=== PATIENT | female | born 1955 | race Caucasian/White ===

== ENCOUNTER → 2019-03-26 | Outpatient (REF) | payer OTHER | LOC: EEVIPCON 09:31 → M LAB REF 09:31 | PROVIDERS: ATTEND Physician Assistant Medical | DX: L73.9 Follicular disorder, unspecified (principal) ==

== ENCOUNTER 2023-03-22 14:30 | Inpatient (IN) | payer MEDICAID, MEDICARE, OTHER, SELFPAY ==
[~2023-03-22] VITALS: Ht 157.5 cm; Wt 152.8 kg
[2023-03-22] MEDS ORDERED: BACL1TAB9 PO (14:55)
[2023-03-22] MEDS ORDERED: ZOLP10TA2 PO (14:55)
[2023-03-22] MEDS ORDERED: HYDR-3719 PO (14:55)
[2023-03-22] MEDS ORDERED: HYDR50TA70 PO (14:55)
[2023-03-22] MEDS ORDERED: MUPI2OI (14:55)
[2023-03-22] MEDS ORDERED: LORA1TAB23 PO (14:55)
[2023-03-22] MEDS ORDERED: METOPROLOL TART 50 MG TAB PO ONE (15:20)
[2023-03-22] MEDS ORDERED: FUROSEMIDE 40MG/4ML VIAL IV ONE (15:20)
[2023-03-22 15:24] LABS: BASO % 0.5 % (0.0-1.0); EOS # 0.1 10^3/uL (0.0-0.5); HEMATOCRIT 38.1 % (36.0-47.0); HEMOGLOBIN 10.2 g/dl (12.0-15.5); LYMPH # 1.2 10^3/uL (1.5-5.0); LYMPH % 14.1 % (24.0-44.0); MEAN CORPUSCULAR HEMOGLOBIN 25.6 pg (27.0-33.0); MEAN CORPUSCULAR HGB CONC 26.8 g/dl (32.0-36.5); MEAN CORPUSCULAR VOLUME 95.5 fl (80.0-96.0); MONO # 0.9 10^3/uL (0.0-0.8); MONO % 10.1 % (2.0-8.0); NEUTROPHILS # 6.4 10^3/uL (1.5-8.5); NEUTROPHILS % 73.7 % (36.0-66.0); PLATELET COUNT, AUTOMATED 132 10^3/uL (150-450); RED BLOOD COUNT 3.99 10^6/uL (4.00-5.40); WHITE BLOOD COUNT 8.6 10^3/uL (4.0-10.0)
[2023-03-22] MEDS: METOPROLOL 5 MG/5 ML VIAL IV SCH ×3 (15:29→15:41)
[2023-03-22 15:49] LABS: THYROID STIMULATING HORMONE 1.345 uIU/ML (0.55-4.78)
[2023-03-22 15:51] LABS: ALBUMIN 2.9 G/DL (3.2-5.2); ALKALINE PHOSPHATASE 106 U/L (46-116); ALT/SGPT 18 U/L (7.0-40); AST/SGOT 24 U/L (<34); BILIRUBIN,DIRECT 0.1 MG/DL (<0.4); BILIRUBIN,TOTAL 0.3 MG/DL (0.3-1.2); BLOOD UREA NITROGEN 14 MG/DL (9-23); CALCIUM LEVEL 7.8 MG/DL (8.3-10.6); CARBON DIOXIDE LEVEL > 40.0 MMOL/L (20-31); CHLORIDE LEVEL 99 MMOL/L (98-107); CREATININE FOR GFR 0.68 MG/DL (0.55-1.30); GLOMERULAR FILTRATION RATE > 60.0 (>45); GLUCOSE, FASTING 123 MG/DL (74-106); POTASSIUM SERUM 5.1 MMOL/L (3.5-5.1); SODIUM LEVEL 143 MMOL/L (136-145); TOTAL PROTEIN 5.8 G/DL (5.7-8.2)
[2023-03-22] MEDS ORDERED: APIXABAN 5 MG TAB (ELIQUIS) PO ONE (16:15)
[2023-03-22] MEDS ORDERED: MORPHINE 2 MG/ML 1ML VIAL As Ordered ONE (16:53)
[2023-03-22] MEDS ORDERED: MORPHINE 2 MG/ML 1ML VIAL IV ONE (16:55)
[2023-03-22] MEDS ORDERED: DIGOXIN INJ 0.5 MG/2 ML AMP IV ONE ×2 (17:05→23:30)
[2023-03-22] MEDS ORDERED: IPRATROPIUM 0.5MG/ALBUTEROL 2.5MG INH SOL UD 3ML (DUONEB) NEB PRN (18:05)
[2023-03-22] MEDS ORDERED: traZODone 25MG PER 1/2 TABLET PO PRN (18:10)
[2023-03-22] MEDS ORDERED: MED REC IN PROGRESS XX SCH (18:50)
[2023-03-22 18:55] LABS: ABG BASE EXCESS 8.8 (-2.0-2.0); ABG HCO3 36.2 MMOL/L (22.0-26.0); ABG O2 SATURATION 95.1 % (95.0-99.0); ABG PARTIAL PRESSURE O2 75.8 mmHg (75.0-100.0); ABG STANDARD HCO3 32.5 MMOL/L. (22.0-26.0); ABG TOTAL CO2 38.2 MMOL/L (23.0-31.0); ABG pH (ARTERIAL) 7.361 UNITS (7.350-7.450)
[2023-03-22] MEDS ORDERED: HOME MED LIST COMPLETE! XX SCH (18:55)
[2023-03-22 18:57] LABS: ABG PARTIAL PRESSURE CO2 65.4 mmHg (35.0-45.0)
[2023-03-22] MEDS: LEVALBUTEROL HFA 45MCG/ACT 15GM INHALER INH SCH (19:20)
[2023-03-22 20:05] VITALS: BP 153/74; TEMP 97; O2SAT 96
[2023-03-22] MEDS: LORazepam 0.5 MG TAB PO SCH (21:21)
[2023-03-22] MEDS: ANEXSIA, NORCO 7.5MG/325MG TABLET(HYDROCODONE/APAP) PO PRN (21:22)
[2023-03-22] MEDS ORDERED: NICOTINE 21MG/24HR 1 EA TRANSDERMAL TD PRN (23:15)
[2023-03-22 23:44] VITALS: BP 143/61; TEMP 96.6; O2SAT 93
[2023-03-22] MEDS: METOPROLOL TART 12.5 MG PER 1/2 TAB PO SCH (23:46)
[2023-03-23] VITALS (9 sets, daily range): BP systolic 122–150; BP diastolic 60–87; TEMP 96.9–97.4; O2SAT 87–94
[2023-03-23] MEDS ORDERED: FUROSEMIDE 40MG/4ML VIAL IV SCH
[2023-03-23] MEDS: LEVALBUTEROL HFA 45MCG/ACT 15GM INHALER INH SCH ×4 (01:04→19:18)
[2023-03-23] MEDS: hydrOXYzine 50 MG TAB PO PRN (03:37)
[2023-03-23] MEDS: ANEXSIA, NORCO 7.5MG/325MG TABLET(HYDROCODONE/APAP) PO PRN ×2 (03:38→10:42)
[2023-03-23 05:58] LABS: BASO % 0.2 % (0.0-1.0); EOS % 0.5 % (0.0-3.0); HEMATOCRIT 37.5 % (36.0-47.0); HEMOGLOBIN 10.3 g/dl (12.0-15.5); LYMPH # 1.3 10^3/uL (1.5-5.0); LYMPH % 15.1 % (24.0-44.0); MEAN CORPUSCULAR HEMOGLOBIN 25.2 pg (27.0-33.0); MEAN CORPUSCULAR HGB CONC 27.5 g/dl (32.0-36.5); MEAN CORPUSCULAR VOLUME 91.9 fl (80.0-96.0); MONO # 0.9 10^3/uL (0.0-0.8); MONO % 10.6 % (2.0-8.0); NEUTROPHILS # 6.5 10^3/uL (1.5-8.5); NEUTROPHILS % 73.1 % (36.0-66.0); PLATELET COUNT, AUTOMATED 130 10^3/uL (150-450); RED BLOOD COUNT 4.08 10^6/uL (4.00-5.40); WHITE BLOOD COUNT 8.8 10^3/uL (4.0-10.0)
[2023-03-23 06:29] LABS: BLOOD UREA NITROGEN 16 MG/DL (9-23); CALCIUM LEVEL 7.9 MG/DL (8.3-10.6); CARBON DIOXIDE LEVEL > 40.0 MMOL/L (20-31); CHLORIDE LEVEL 93 MMOL/L (98-107); CREATININE FOR GFR 0.74 MG/DL (0.55-1.30); GLOMERULAR FILTRATION RATE > 60.0 (>45); GLUCOSE, FASTING 118 MG/DL (74-106); MAGNESIUM LEVEL 1.7 MG/DL (1.8-2.4); POTASSIUM SERUM 3.9 MMOL/L (3.5-5.1); SODIUM LEVEL 141 MMOL/L (136-145)
[2023-03-23] MEDS: METOPROLOL TART 12.5 MG PER 1/2 TAB PO SCH (06:50)
[2023-03-23] MEDS ORDERED: MAG SULF 1GM/100ML (MAG RUN) 1 GM in IV 1 EA IV ONE (07:20)
[2023-03-23 08:35] LABS: ABG BASE EXCESS 12.7 (-2.0-2.0); ABG HCO3 39.6 MMOL/L (22.0-26.0); ABG O2 SATURATION 90.5 % (95.0-99.0); ABG PARTIAL PRESSURE O2 60.9 mmHg (75.0-100.0); ABG STANDARD HCO3 36.3 MMOL/L. (22.0-26.0); ABG TOTAL CO2 41.5 MMOL/L (23.0-31.0); ABG pH (ARTERIAL) 7.409 UNITS (7.350-7.450)
[2023-03-23] MEDS: DIGOXIN 0.25 MG TAB PO SCH ×2 (09:00→10:31)
[2023-03-23] MEDS: FUROSEMIDE 40MG/4ML VIAL IV SCH ×2 (09:41→16:51)
[2023-03-23] MEDS: LORazepam 0.5 MG TAB PO SCH ×3 (09:43→20:05)
[2023-03-23] MEDS: MAGNESIUM OXIDE 400MG TAB (MAG-OX) PO SCH ×2 (09:43→20:05)
[2023-03-23] MEDS: APIXABAN 5 MG TAB (ELIQUIS) PO SCH ×2 (09:45→20:05)
[2023-03-23] MEDS ORDERED: ELIQ5TAB PO (10:37)
[2023-03-23] MEDS ORDERED: - PO SCH (12:00)
[2023-03-23] MEDS ORDERED: acetaZOLAMIDE 250MG TAB PO SCH (12:00)
[2023-03-23] MEDS: NORCO, ANEXSIA 5/325MG TABLET (HYDROcodone/ACETAMINOPHEN) PO PRN (16:53)
[2023-03-23] MEDS: POTASSIUM CHLORIDE 10MEQ SR TABLET PO SCH (20:05)
[2023-03-23] MEDS: BACLOFEN 10 MG TAB PO SCH (20:05)
[2023-03-23] MEDS: METOPROLOL TART 25 MG TABLET PO SCH (20:06)
[2023-03-23 20:47] LABS: BLOOD UREA NITROGEN 16 MG/DL (9-23); CALCIUM LEVEL 8.5 MG/DL (8.3-10.6); CARBON DIOXIDE LEVEL > 40.0 MMOL/L (20-31); CHLORIDE LEVEL 92 MMOL/L (98-107); CREATININE FOR GFR 0.85 MG/DL (0.55-1.30); GLOMERULAR FILTRATION RATE > 60.0 (>45); GLUCOSE, FASTING 115 MG/DL (74-106); POTASSIUM SERUM 3.9 MMOL/L (3.5-5.1); SODIUM LEVEL 139 MMOL/L (136-145)
[2023-03-23] MEDS ORDERED: zolPIDEM TARTRATE 5 MG TAB PO SCH (21:00)
[2023-03-24] MEDS ORDERED: OLANZapine INTRAMUSCULAR 10MG VIAL IM ONE (00:20)
[2023-03-24 01:00] VITALS: BP 127/60; TEMP 97.5; O2SAT 94
[2023-03-24] MEDS: LEVALBUTEROL HFA 45MCG/ACT 15GM INHALER INH SCH ×2 (01:04→07:48)
[2023-03-24 01:07] LABS: ABG BASE EXCESS 11.8 (-2.0-2.0); ABG HCO3 38.3 MMOL/L (22.0-26.0); ABG O2 SATURATION 96.7 % (95.0-99.0); ABG PARTIAL PRESSURE CO2 59.8 mmHg (35.0-45.0); ABG PARTIAL PRESSURE O2 92.6 mmHg (75.0-100.0); ABG STANDARD HCO3 35.5 MMOL/L. (22.0-26.0); ABG TOTAL CO2 40.1 MMOL/L (23.0-31.0); ABG pH (ARTERIAL) 7.424 UNITS (7.350-7.450)
[2023-03-24] MEDS: NORCO, ANEXSIA 5/325MG TABLET (HYDROcodone/ACETAMINOPHEN) PO PRN ×2 (02:59→09:04)
[2023-03-24] MEDS: hydrOXYzine 50 MG TAB PO PRN (02:59)
[2023-03-24 03:02] VITALS: BP 137/62; TEMP 97; O2SAT 94
[2023-03-24 07:30] VITALS: BP 139/70; TEMP 97.5; O2SAT 94
[2023-03-24] MEDS: FUROSEMIDE 40MG/4ML VIAL IV SCH (09:00)
[2023-03-24] MEDS: LORazepam 0.5 MG TAB PO SCH (09:02)
[2023-03-24 09:03] VITALS: BP 139/70
[2023-03-24] MEDS: DIGOXIN 0.25 MG TAB PO SCH (09:03)
[2023-03-24] MEDS: POTASSIUM CHLORIDE 10MEQ SR TABLET PO SCH (09:03)
[2023-03-24] MEDS: METOPROLOL TART 25 MG TABLET PO SCH (09:03)
[2023-03-24] MEDS: APIXABAN 5 MG TAB (ELIQUIS) PO SCH (09:03)
[2023-03-24] MEDS: MAGNESIUM OXIDE 400MG TAB (MAG-OX) PO SCH (09:03)
[2023-03-24] MEDS: BACLOFEN 10 MG TAB PO SCH (09:04)
[2023-03-24 09:25] LABS: VENOUS BASE EXCESS 11.8 (-2.0-2.0); VENOUS HCO3 39.2 MMOL/L (23.0-27.0); VENOUS O2 SATURATION 90.5 % (60.0-80.0); VENOUS PARTIAL PRESSURE CO2 66.2 mmHg (38.0-50.0); VENOUS PARTIAL PRESSURE O2 61.2 mmHg (30.0-50.0); VENOUS STANDARD HCO3 35.4 MMOL/L; VENOUS TOTAL CO2 41.2 MMOL/L (24.0-28.0)
[2023-03-24 09:33] LABS: BASO % 0.4 % (0.0-1.0); EOS # 0.1 10^3/uL (0.0-0.5); EOS % 1.1 % (0.0-3.0); HEMATOCRIT 36.4 % (36.0-47.0); HEMOGLOBIN 10.3 g/dl (12.0-15.5); LYMPH # 1.1 10^3/uL (1.5-5.0); LYMPH % 14.8 % (24.0-44.0); MEAN CORPUSCULAR HEMOGLOBIN 25.3 pg (27.0-33.0); MEAN CORPUSCULAR HGB CONC 28.3 g/dl (32.0-36.5); MEAN CORPUSCULAR VOLUME 89.4 fl (80.0-96.0); MONO # 0.6 10^3/uL (0.0-0.8); MONO % 8.7 % (2.0-8.0); NEUTROPHILS # 5.5 10^3/uL (1.5-8.5); NEUTROPHILS % 74.7 % (36.0-66.0); PLATELET COUNT, AUTOMATED 127 10^3/uL (150-450); RED BLOOD COUNT 4.07 10^6/uL (4.00-5.40); WHITE BLOOD COUNT 7.4 10^3/uL (4.0-10.0)
[2023-03-24 10:01] LABS: BLOOD UREA NITROGEN 16 MG/DL (9-23); CALCIUM LEVEL 8.5 MG/DL (8.3-10.6); CARBON DIOXIDE LEVEL 40 MMOL/L (20-31); CHLORIDE LEVEL 95 MMOL/L (98-107); CREATININE FOR GFR 0.74 MG/DL (0.55-1.30); GLOMERULAR FILTRATION RATE > 60.0 (>45); GLUCOSE, FASTING 114 MG/DL (74-106); MAGNESIUM LEVEL 2.1 MG/DL (1.8-2.4); POTASSIUM SERUM 3.4 MMOL/L (3.5-5.1); SODIUM LEVEL 139 MMOL/L (136-145)
[2023-03-24] MEDS ORDERED: HYDR-3719 PO (10:33)
[2023-03-24] MEDS ORDERED: DIGO0.123 PO (10:33)
[2023-03-24] MEDS ORDERED: INCR1INH INH (10:33)
[2023-03-24] MEDS ORDERED: BACL1TAB9 PO (10:33)
[2023-03-24] MEDS ORDERED: LEVAINH INH (10:33)
[2023-03-24] MEDS ORDERED: POTA-136 PO (10:33)
[2023-03-24] MEDS ORDERED: LORA1TAB23 PO (10:33)
[2023-03-24] MEDS ORDERED: TORS20TA2 PO (10:33)
[2023-03-24] MEDS ORDERED: METO1TAB87 PO (10:33)
== END 2023-03-24 11:45 | disposition home or self-care (01) | DRG 308 ==
LOC: M ED 14:30 → EDBD 14:30 → M ED INP 17:02 → M PCU 20:02
PROVIDERS: ADMIT Internal Medicine Nephrology; ATTEND Internal Medicine Nephrology
DX: I48.92 Unspecified atrial flutter (principal); I50.31 Acute diastolic (congestive) heart failure; J96.11 Chronic respiratory failure with hypoxia; Z68.44 Body mass index [BMI] 60.0-69.9, adult; J96.12 Chronic respiratory failure with hypercapnia; E66.2 Morbid (severe) obesity with alveolar hypoventilation; J44.9 Chronic obstructive pulmonary disease, unspecified; I27.20 Pulmonary hypertension, unspecified; F41.1 Generalized anxiety disorder; M54.59 Other low back pain; M17.2 Bilateral post-traumatic osteoarthritis of knee; D64.9 Anemia, unspecified; I48.91 Unspecified atrial fibrillation; Z88.0 Allergy status to penicillin; Z79.899 Other long term (current) drug therapy; F17.200 Nicotine dependence, unspecified, uncomplicated

== ENCOUNTER 2023-12-11 10:58 | Observation (INO) | payer MEDICARE ==
[~2023-12-11] VITALS: Ht 157.5 cm; Wt 141.3 kg
[~2023-12-11 10:58] MED LIST: BACL1TAB9 PO; DIGO0.123 PO; ELIQ5TAB PO; HYDR-3719 PO; HYDR50TA70 PO; INCR1INH INH; LEVAINH INH; LORA1TAB23 PO; METO1TAB87 PO; MUPI2OI; POTA-136 PO; TORS20TA2 PO; ZOLP10TA2 PO
[2023-12-11 12:05] LABS: VENOUS HCO3 35.5 MMOL/L (23.0-27.0); VENOUS O2 SATURATION 82.7 % (60.0-80.0); VENOUS PARTIAL PRESSURE CO2 63.5 mmHg (38.0-50.0); VENOUS PARTIAL PRESSURE O2 49.6 mmHg (30.0-50.0); VENOUS PH 7.365 UNITS (7.330-7.430); VENOUS STANDARD HCO3 31.4 MMOL/L; VENOUS TOTAL CO2 37.4 MMOL/L (24.0-28.0)
[2023-12-11 12:07] LABS: BASO % 0.4 % (0.0-1.0); EOS # 0.1 10^3/uL (0.0-0.5); EOS % 1.5 % (0.0-3.0); HEMATOCRIT 39.4 % (36.0-47.0); HEMOGLOBIN 11.9 g/dl (12.0-15.5); LYMPH # 1.1 10^3/uL (1.5-5.0); MEAN CORPUSCULAR HEMOGLOBIN 29.8 pg (27.0-33.0); MEAN CORPUSCULAR HGB CONC 30.2 g/dl (32.0-36.5); MEAN CORPUSCULAR VOLUME 98.7 fl (80.0-96.0); MONO # 0.6 10^3/uL (0.0-0.8); MONO % 7.3 % (2.0-8.0); NEUTROPHILS # 6.6 10^3/uL (1.5-8.5); NEUTROPHILS % 77.6 % (36.0-66.0); PLATELET COUNT, AUTOMATED 146 10^3/uL (150-450); RED BLOOD COUNT 3.99 10^6/uL (4.00-5.40); WHITE BLOOD COUNT 8.5 10^3/uL (4.0-10.0)
[2023-12-11 12:28] LABS: INR 1.29; PROTHROMBIN TIME 15.7 SECONDS (12.5-14.5)
[2023-12-11 12:40] LABS: THYROID STIMULATING HORMONE 0.895 uIU/ML (0.55-4.78)
[2023-12-11 12:48] LABS: ALBUMIN 3.2 G/DL (3.2-5.2); ALKALINE PHOSPHATASE 83 U/L (46-116); ALT/SGPT 29 U/L (7.0-40); AST/SGOT 46 U/L (<34); BILIRUBIN,DIRECT 0.1 MG/DL (<0.4); BILIRUBIN,TOTAL 0.3 MG/DL (0.3-1.2); BLOOD UREA NITROGEN 22 MG/DL (9-23); CALCIUM LEVEL 8.5 MG/DL (8.3-10.6); CARBON DIOXIDE LEVEL 36 MMOL/L (20-31); CHLORIDE LEVEL 105 MMOL/L (98-107); CREATININE FOR GFR 0.75 MG/DL (0.55-1.30); GLOMERULAR FILTRATION RATE > 60.0 (>45); GLUCOSE, FASTING 132 MG/DL (74-106); POTASSIUM SERUM 5.1 MMOL/L (3.5-5.1); SODIUM LEVEL 145 MMOL/L (136-145); TOTAL PROTEIN 6.3 G/DL (5.7-8.2)
[2023-12-11] MEDS ORDERED: ISOVUE-370 76% 100ML VIAL As Ordered ONE (14:02)
[2023-12-11] MEDS: FUROSEMIDE 100MG/10ML VIAL IV ONE (14:30)
[2023-12-11] MEDS: MIDAZOLAM INJ 2MG/2ML VIAL IV STA (14:30)
[2023-12-11] MEDS ORDERED: ACETAMINOPHEN TAB 650MG DOSE (2X325MG) PO PRN (15:30)
[2023-12-11] MEDS ORDERED: MOM 30ML SUSPENSION UDC PO PRN (15:30)
[2023-12-11] MEDS ORDERED: TORS20TA2 PO (16:11)
[2023-12-11] MEDS ORDERED: HYDR-4517 PO (16:11)
[2023-12-11] MEDS ORDERED: DIGO0.123 PO (16:11)
[2023-12-11] MEDS ORDERED: LORA1TAB23 PO (16:11)
[2023-12-11] MEDS ORDERED: BUPR15TASR PO (16:11)
[2023-12-11] MEDS ORDERED: POTA-150 PO (16:11)
[2023-12-11] MEDS ORDERED: LEVA45AE INH (16:11)
[2023-12-11] MEDS ORDERED: METO1TAB87 PO (16:11)
[2023-12-11] MEDS ORDERED: ELIQ5TAB PO (16:11)
[2023-12-11] MEDS ORDERED: HOME MED LIST COMPLETE! XX SCH (16:15)
[2023-12-11] MEDS ORDERED: ONDANSETRON 4MG 2ML VIAL IV PRN (17:20)
[2023-12-11 17:35] VITALS: BP 156/93; TEMP 97.3; O2SAT 94
[2023-12-11] MEDS: METOPROLOL TART 25 MG TABLET PO ONE (18:17)
[2023-12-11 19:53] VITALS: BP 139/95; TEMP 97.5; O2SAT 92
[2023-12-11] MEDS ORDERED: NORCO, ANEXSIA 5/325MG TABLET (HYDROcodone/ACETAMINOPHEN) PO PRN (19:55)
[2023-12-11] MEDS: LEVALBUTEROL HFA 45MCG/ACT 15GM INHALER INH SCH (20:00)
[2023-12-11] MEDS: DOCUSATE SODIUM 100MG CAPSULE PO SCH (21:00)
[2023-12-11] MEDS: BACLOFEN 10 MG TAB PO SCH (21:27)
[2023-12-11] MEDS: NORCO, ANEXSIA 5/325MG TABLET (HYDROcodone/ACETAMINOPHEN) PO PRN (21:31)
[2023-12-11] MEDS: LORazepam 1 MG TAB PO PRN (21:32)
[2023-12-11] MEDS: APIXABAN 5 MG TAB (ELIQUIS) PO SCH (21:47)
[2023-12-11] MEDS: FUROSEMIDE 40MG/4ML VIAL IV ONE (21:47)
[2023-12-11 22:00] VITALS: BP 139/95; TEMP 97.5; O2SAT 94
[2023-12-12 06:00] LABS: HEMATOCRIT 37.9 % (36.0-47.0); HEMOGLOBIN 11.7 g/dl (12.0-15.5); MEAN CORPUSCULAR HEMOGLOBIN 29.5 pg (27.0-33.0); MEAN CORPUSCULAR HGB CONC 30.9 g/dl (32.0-36.5); MEAN CORPUSCULAR VOLUME 95.7 fl (80.0-96.0); PLATELET COUNT, AUTOMATED 144 10^3/uL (150-450); RED BLOOD COUNT 3.96 10^6/uL (4.00-5.40); WHITE BLOOD COUNT 9.2 10^3/uL (4.0-10.0)
[2023-12-12 06:21] VITALS: BP 125/92; TEMP 97.7; O2SAT 95
[2023-12-12 06:27] LABS: BLOOD UREA NITROGEN 20 MG/DL (9-23); CALCIUM LEVEL 8.4 MG/DL (8.3-10.6); CARBON DIOXIDE LEVEL 39 MMOL/L (20-31); CHLORIDE LEVEL 100 MMOL/L (98-107); GLOMERULAR FILTRATION RATE > 60.0 (>45); GLUCOSE, FASTING 116 MG/DL (74-106); POTASSIUM SERUM 3.5 MMOL/L (3.5-5.1); SODIUM LEVEL 143 MMOL/L (136-145)
[2023-12-12] MEDS: POTASSIUM CHLORIDE 10MEQ SR TABLET PO SCH (08:29)
[2023-12-12] MEDS: FUROSEMIDE 40MG/4ML VIAL IV SCH (08:29)
[2023-12-12] MEDS: METOPROLOL TART 25 MG TABLET PO SCH (08:37)
[2023-12-12] MEDS: buPROPion **SR TABLET** (ZYBAN) 150MG PO SCH (08:37)
[2023-12-12] MEDS: DIGOXIN 0.125 MG TAB PO SCH (08:38)
[2023-12-12] MEDS: GABAPENTIN 100 MG CAP PO SCH (10:00)
[2023-12-12] MEDS: LIDOCAINE 5% (LIDODERM) PATCH TD SCH (10:00)
[2023-12-12] MEDS: DICLOFENAC EPOLAMINE 1.3% PATCH TOP SCH (10:00)
[2023-12-12] MEDS: KETOROLAC 30 MG/ML 1ML VIAL IV ONE (10:01)
[2023-12-12] MEDS: CYCLOBENZAPRINE 10MG TABLET PO ONE (10:01)
[2023-12-12 12:00] VITALS: BP 128/61; TEMP 97.3; O2SAT 94
[2023-12-12] MEDS: LORazepam 1 MG TAB PO PRN (17:57)
[2023-12-12 18:57] VITALS: BP 127/85; TEMP 97.3; O2SAT 96
[2023-12-12 20:52] VITALS: BP 143/72; TEMP 97.2; O2SAT 95
[2023-12-12] MEDS: RAMELTEON 8 MG TAB (ROZEREM) PO SCH (20:59)
[2023-12-13 04:00] VITALS: BP 144/70; TEMP 96.8; O2SAT 92
[2023-12-13 12:00] VITALS: BP 132/65; TEMP 96.8; O2SAT 95
[2023-12-13] MEDS ORDERED: NYSTATIN 100,000 UNITS/GM TOPICAL PWD 15GM TOP PRN (13:55)
[2023-12-13 21:41] VITALS: BP 129/69; TEMP 97.3; O2SAT 91
[2023-12-14 02:35] LABS: BLOOD UREA NITROGEN 17 MG/DL (9-23); CALCIUM LEVEL 7.7 MG/DL (8.3-10.6); CARBON DIOXIDE LEVEL 38 MMOL/L (20-31); CHLORIDE LEVEL 95 MMOL/L (98-107); CREATININE FOR GFR 0.93 MG/DL (0.55-1.30); GLOMERULAR FILTRATION RATE > 60.0 (>45); GLUCOSE, FASTING 101 MG/DL (74-106); MAGNESIUM LEVEL 1.8 MG/DL (1.8-2.4); POTASSIUM SERUM 3.2 MMOL/L (3.5-5.1); SODIUM LEVEL 137 MMOL/L (136-145)
[2023-12-14] MEDS: KCL 10MEQ/100ML SWI (KRUN) 10 MEQ in IV 1 EA IV ONE (04:42)
[2023-12-14] MEDS: POTASSIUM CHLORIDE 10MEQ SR TABLET PO SCH (04:43)
[2023-12-14] MEDS: ACETAMINOPHEN TAB 650MG DOSE (2X325MG) PO PRN (04:43)
[2023-12-14] MEDS: MAGNESIUM OXIDE 400MG TAB (MAG-OX) PO SCH (04:44)
[2023-12-14 05:08] VITALS: BP 118/57; TEMP 97; O2SAT 93
[2023-12-14] MEDS: KCL 10MEQ/100ML SWI (KRUN) 10 MEQ in IV 1 EA IV SCH (08:09)
[2023-12-14] MEDS: TORSEMIDE 20 MG TAB PO SCH (08:55)
[2023-12-14 11:45] VITALS: BP 153/74; TEMP 97.2; O2SAT 93
[2023-12-14 11:51] LABS: ALBUMIN 2.9 G/DL (3.2-5.2); BLOOD UREA NITROGEN 17 MG/DL (9-23); CALCIUM LEVEL 7.8 MG/DL (8.3-10.6); CARBON DIOXIDE LEVEL 36 MMOL/L (20-31); CHLORIDE LEVEL 98 MMOL/L (98-107); CREATININE FOR GFR 0.86 MG/DL (0.55-1.30); GLOMERULAR FILTRATION RATE > 60.0 (>45); GLUCOSE, FASTING 131 MG/DL (74-106); PHOSPHORUS LEVEL 3.7 MG/DL (2.4-5.1); POTASSIUM SERUM 3.5 MMOL/L (3.5-5.1); SODIUM LEVEL 140 MMOL/L (136-145)
[2023-12-14] MEDS ORDERED: RAME8TAB2 PO (14:00)
[2023-12-14 20:34] VITALS: BP 149/73; TEMP 97.2; O2SAT 95
[2023-12-15 04:48] VITALS: BP 130/66; TEMP 97.3; O2SAT 94
[2023-12-15 08:14] VITALS: BP 142/59
[2023-12-15] MEDS ORDERED: MAGN400T2 PO (11:39)
== END 2023-12-15 13:32 | disposition home health service (06) ==
LOC: M ED 10:58 → EDBD 10:58 → M ED INP 10:59 → M MSPAV 17:35
PROVIDERS: ADMIT Student in an Organized Health Care Education/Training Program; ATTEND Student in an Organized Health Care Education/Training Program
DX: I50.33 Acute on chronic diastolic (congestive) heart failure (principal); R53.81 Other malaise; E66.01 Morbid (severe) obesity due to excess calories; I89.0 Lymphedema, not elsewhere classified; I11.0 Hypertensive heart disease with heart failure; I48.91 Unspecified atrial fibrillation; Z79.01 Long term (current) use of anticoagulants; J96.11 Chronic respiratory failure with hypoxia; J44.9 Chronic obstructive pulmonary disease, unspecified; Z99.81 Dependence on supplemental oxygen; G47.33 Obstructive sleep apnea (adult) (pediatric); F41.9 Anxiety disorder, unspecified; Z88.0 Allergy status to penicillin; Z79.899 Other long term (current) drug therapy; Z79.51 Long term (current) use of inhaled steroids
CPT/HCPCS: 36415; 71045; 71275; 80048; 80069; 80076; 80162; 81001; 82803; 83735; 83880; 84443; 85025; 85027; 85610; 87040; 87486; 87581; 87633; 87798; 93005; 93041; 93306; 93970; 94640; 94760; 96361; 96374; 96375; 96376; 97116; 97161; 99285; G0378; J1885; J1940; J2250; Q9967

== ENCOUNTER 2023-12-19 08:30 | Emergency (ER) | payer MEDICARE ==
[~2023-12-19] VITALS: Ht 157.5 cm; Wt 143.6 kg
[~2023-12-19 08:30] MED LIST changes: +BUPR15TASR PO; +HYDR-4517 PO; +LEVA45AE INH; +MAGN400T2 PO; +POTA-150 PO; +RAME8TAB2 PO
[2023-12-19 09:19] LABS: BASO % 0.5 % (0.0-1.0); EOS # 0.2 10^3/uL (0.0-0.5); EOS % 2.3 % (0.0-3.0); HEMATOCRIT 40.3 % (36.0-47.0); HEMOGLOBIN 12.2 g/dl (12.0-15.5); LYMPH # 1.2 10^3/uL (1.5-5.0); MEAN CORPUSCULAR HEMOGLOBIN 30.2 pg (27.0-33.0); MEAN CORPUSCULAR HGB CONC 30.3 g/dl (32.0-36.5); MEAN CORPUSCULAR VOLUME 99.8 fl (80.0-96.0); MONO # 0.7 10^3/uL (0.0-0.8); MONO % 8.4 % (2.0-8.0); NEUTROPHILS # 6.5 10^3/uL (1.5-8.5); NEUTROPHILS % 74.6 % (36.0-66.0); PLATELET COUNT, AUTOMATED 159 10^3/uL (150-450); RED BLOOD COUNT 4.04 10^6/uL (4.00-5.40); WHITE BLOOD COUNT 8.7 10^3/uL (4.0-10.0)
[2023-12-19 09:33] LABS: CK-MB VALUE MASS < 1.0 NG/ML (<3.6); LIPASE 22 U/L (12-53)
[2023-12-19 09:36] LABS: ALBUMIN 3.2 G/DL (3.2-5.2); ALKALINE PHOSPHATASE 99 U/L (46-116); ALT/SGPT 40 U/L (7.0-40); AST/SGOT 66 U/L (<34); BILIRUBIN,DIRECT 0.2 MG/DL (<0.4); BILIRUBIN,TOTAL 0.4 MG/DL (0.3-1.2); BLOOD UREA NITROGEN 34 MG/DL (9-23); CALCIUM LEVEL 8.4 MG/DL (8.3-10.6); CARBON DIOXIDE LEVEL 34 MMOL/L (20-31); CHLORIDE LEVEL 102 MMOL/L (98-107); CREATININE FOR GFR 0.96 MG/DL (0.55-1.30); GLOMERULAR FILTRATION RATE > 60.0 (>45); GLUCOSE, FASTING 123 MG/DL (74-106); POTASSIUM SERUM 4.6 MMOL/L (3.5-5.1); SODIUM LEVEL 141 MMOL/L (136-145); TOTAL PROTEIN 6.4 G/DL (5.7-8.2)
[2023-12-19 09:37] LABS: CPK CREATINE PHOSPHOKINASE 54 U/L (34-145); MB/CK RELATIVE INDEX 1.85 (< OR =4)
[2023-12-19] MEDS: GABAPENTIN 100 MG CAP PO ONE (10:22)
[2023-12-19 10:45] LABS: CK-MB VALUE MASS < 1.0 NG/ML (<3.6); CPK CREATINE PHOSPHOKINASE 59 U/L (34-145); MB/CK RELATIVE INDEX 1.69 (< OR =4)
[2023-12-19] MEDS ORDERED: ROLLMIS8 XX (14:46)
[2023-12-19] MEDS ORDERED: NEUR100C PO (14:46)
[2023-12-19 15:09] VITALS: BP 139/87; TEMP 97.5; O2SAT 93
== END 2023-12-19 15:26 | disposition home or self-care (01) ==
LOC: EDBD 08:30 → M ED 08:30
DX: G90.09 Other idiopathic peripheral autonomic neuropathy (principal); E66.01 Morbid (severe) obesity due to excess calories; I87.2 Venous insufficiency (chronic) (peripheral); J44.9 Chronic obstructive pulmonary disease, unspecified; G47.33 Obstructive sleep apnea (adult) (pediatric); Z88.0 Allergy status to penicillin; Z86.79 Personal history of other diseases of the circulatory system; Z87.891 Personal history of nicotine dependence; Z98.84 Bariatric surgery status; Z79.01 Long term (current) use of anticoagulants; Z79.810 Long term (current) use of selective estrogen receptor modulators (SERMs); Z79.899 Other long term (current) drug therapy

== ENCOUNTER 2023-12-24 20:24 | Observation (INO) | payer MEDICARE ==
[~2023-12-24] VITALS: Ht 157.5 cm; Wt 145.6 kg
[~2023-12-24 20:24] MED LIST changes: +LEVO1TAB40 PO; +NEUR100C PO; +ROLLMIS8 XX
[2023-12-24 21:24] LABS: BASO % 0.3 % (0.0-1.0); EOS # 0.2 10^3/uL (0.0-0.5); EOS % 2.5 % (0.0-3.0); HEMATOCRIT 40.7 % (36.0-47.0); HEMOGLOBIN 12.2 g/dl (12.0-15.5); LYMPH # 1.1 10^3/uL (1.5-5.0); LYMPH % 15.8 % (24.0-44.0); MEAN CORPUSCULAR HEMOGLOBIN 30.3 pg (27.0-33.0); MONO # 0.4 10^3/uL (0.0-0.8); NEUTROPHILS # 5.1 10^3/uL (1.5-8.5); NEUTROPHILS % 75.3 % (36.0-66.0); PLATELET COUNT, AUTOMATED 158 10^3/uL (150-450); RED BLOOD COUNT 4.03 10^6/uL (4.00-5.40); WHITE BLOOD COUNT 6.7 10^3/uL (4.0-10.0)
[2023-12-24 21:25] LABS: ABG BASE EXCESS 4.8 (-2.0-2.0); ABG HCO3 31.1 MMOL/L (22.0-26.0); ABG PARTIAL PRESSURE CO2 53.4 mmHg (35.0-45.0); ABG PARTIAL PRESSURE O2 71.5 mmHg (75.0-100.0); ABG STANDARD HCO3 28.7 MMOL/L. (22.0-26.0); ABG TOTAL CO2 32.7 MMOL/L (23.0-31.0); ABG pH (ARTERIAL) 7.383 UNITS (7.350-7.450)
[2023-12-24 22:36] LABS: CK-MB VALUE MASS < 1.0 NG/ML (<3.6)
[2023-12-24 22:38] LABS: ALBUMIN 2.8 G/DL (3.2-5.2); ALKALINE PHOSPHATASE 99 U/L (46-116); ALT/SGPT 40 U/L (7.0-40); AST/SGOT 42 U/L (<34); BILIRUBIN,DIRECT < 0.1 MG/DL (<0.4); BILIRUBIN,TOTAL 0.2 MG/DL (0.3-1.2); BLOOD UREA NITROGEN 22 MG/DL (9-23); CALCIUM LEVEL 7.9 MG/DL (8.3-10.6); CARBON DIOXIDE LEVEL 36 MMOL/L (20-31); CHLORIDE LEVEL 106 MMOL/L (98-107); CREATININE FOR GFR 0.81 MG/DL (0.55-1.30); DIGOXIN LEVEL 0.8 NG/ML (0.8-2.0); GLOMERULAR FILTRATION RATE > 60.0 (>45); GLUCOSE, FASTING 143 MG/DL (74-106); POTASSIUM SERUM 4.7 MMOL/L (3.5-5.1); SODIUM LEVEL 145 MMOL/L (136-145); TOTAL PROTEIN 5.8 G/DL (5.7-8.2)
[2023-12-24 22:44] LABS: CPK CREATINE PHOSPHOKINASE 64 U/L (34-145); MB/CK RELATIVE INDEX 1.56 (< OR =4)
[2023-12-24 23:41] LABS: CK-MB VALUE MASS < 1.0 NG/ML (<3.6); CPK CREATINE PHOSPHOKINASE 77 U/L (34-145); MB/CK RELATIVE INDEX 1.29 (< OR =4)
[2023-12-24] MEDS: FUROSEMIDE 40MG/4ML VIAL IV ONE (23:50)
[2023-12-24] MEDS: KETOROLAC 30 MG/ML 1ML VIAL IV ONE (23:51)
[2023-12-25] MEDS ORDERED: LORazepam 2 MG/ML 1ML VIAL IV STA (00:25)
[2023-12-25] MEDS ORDERED: ALBU2.5V10 INH (01:28)
[2023-12-25] MEDS ORDERED: GABA-1171 PO (01:28)
[2023-12-25] MEDS ORDERED: ROZE8TAB16 PO (01:31)
[2023-12-25] MEDS ORDERED: MAGN400T2 PO (01:31)
[2023-12-25] MEDS ORDERED: MED REC IN PROGRESS XX SCH (02:00)
[2023-12-25] MEDS ORDERED: ALBUTEROL SULFATE 2.5MG/0.5ML INH NEB SOLN INH PRN (04:00)
[2023-12-25] MEDS ORDERED: IPRATROPIUM 0.5MG/ALBUTEROL 2.5MG INH SOL UD 3ML (DUONEB) NEB PRN (04:30)
[2023-12-25] MEDS ORDERED: HOME MED LIST COMPLETE! XX SCH (05:45)
[2023-12-25 06:26] VITALS: BP 151/76; TEMP 98.1; O2SAT 96
[2023-12-25] MEDS: LORazepam 1 MG TAB PO PRN (06:59)
[2023-12-25] MEDS: NORCO, ANEXSIA 5/325MG TABLET (HYDROcodone/ACETAMINOPHEN) PO PRN (07:00)
[2023-12-25 08:07] LABS: HEMATOCRIT 35.5 % (36.0-47.0); HEMOGLOBIN 10.6 g/dl (12.0-15.5); MEAN CORPUSCULAR HEMOGLOBIN 29.8 pg (27.0-33.0); MEAN CORPUSCULAR HGB CONC 29.9 g/dl (32.0-36.5); MEAN CORPUSCULAR VOLUME 99.7 fl (80.0-96.0); PLATELET COUNT, AUTOMATED 133 10^3/uL (150-450); RED BLOOD COUNT 3.56 10^6/uL (4.00-5.40); WHITE BLOOD COUNT 6.6 10^3/uL (4.0-10.0)
[2023-12-25 08:29] LABS: ALBUMIN 2.7 G/DL (3.2-5.2); ALKALINE PHOSPHATASE 87 U/L (46-116); ALT/SGPT 34 U/L (7.0-40); AST/SGOT 31 U/L (<34); BILIRUBIN,TOTAL 0.3 MG/DL (0.3-1.2); BLOOD UREA NITROGEN 27 MG/DL (9-23); CALCIUM LEVEL 8.2 MG/DL (8.3-10.6); CARBON DIOXIDE LEVEL 37 MMOL/L (20-31); CHLORIDE LEVEL 103 MMOL/L (98-107); CREATININE FOR GFR 0.84 MG/DL (0.55-1.30); GLOMERULAR FILTRATION RATE > 60.0 (>45); GLUCOSE, FASTING 137 MG/DL (74-106); POTASSIUM SERUM 4.1 MMOL/L (3.5-5.1); SODIUM LEVEL 143 MMOL/L (136-145); TOTAL PROTEIN 5.3 G/DL (5.7-8.2)
[2023-12-25] MEDS ORDERED: TORSEMIDE 20 MG TAB PO SCH (09:00)
[2023-12-25] MEDS: NYSTATIN 100,000 UNITS/GM TOPICAL PWD 15GM TOP SCH (09:00)
[2023-12-25] MEDS: LEVALBUTEROL HFA 45MCG/ACT 15GM INHALER INH SCH (09:20)
[2023-12-25] MEDS: BACLOFEN 10 MG TAB PO SCH (10:22)
[2023-12-25] MEDS: MAGNESIUM OXIDE 400MG TAB (MAG-OX) PO SCH (10:22)
[2023-12-25] MEDS: hydrOXYzine 50 MG TAB PO SCH (10:22)
[2023-12-25] MEDS: APIXABAN 5 MG TAB (ELIQUIS) PO SCH (10:23)
[2023-12-25] MEDS: POTASSIUM CHLORIDE 10MEQ SR TABLET PO SCH (10:23)
[2023-12-25] MEDS: buPROPion **SR TABLET** (ZYBAN) 150MG PO SCH (10:23)
[2023-12-25] MEDS: GABAPENTIN 100 MG CAP PO SCH (10:23)
[2023-12-25] MEDS: DIGOXIN 0.125 MG TAB PO SCH (10:24)
[2023-12-25] MEDS: FUROSEMIDE 20MG/2ML VIAL IV SCH ×2 (10:24→17:28)
[2023-12-25] MEDS: METOPROLOL TART 25 MG TABLET PO SCH ×2 (10:26→17:30)
[2023-12-25 11:04] LABS: URIC ACID 7.2 MG/DL (3.1-7.8)
[2023-12-25 12:00] VITALS: BP 145/71; TEMP 97.5; O2SAT 95
[2023-12-25 12:01] LABS: INR 1.24; PARTIAL THROMBOPLASTIN TIME 31.4 SECONDS (24.8-34.2); PROTHROMBIN TIME 15.2 SECONDS (12.5-14.5)
[2023-12-25 13:28] VITALS: O2SAT 95
[2023-12-25 19:13] LABS: PROCALCITONIN 0.12 ng/ml
[2023-12-25 20:30] VITALS: BP 125/54; TEMP 97.7; O2SAT 90
[2023-12-25] MEDS: RAMELTEON 8 MG TAB (ROZEREM) PO SCH (20:30)
[2023-12-26] MEDS: zolPIDEM TARTRATE 5 MG TAB PO PRN (02:19)
[2023-12-26 04:50] VITALS: BP 144/71; TEMP 97.3; O2SAT 95
[2023-12-26 06:26] LABS: BASO % 0.5 % (0.0-1.0); EOS # 0.2 10^3/uL (0.0-0.5); EOS % 3.1 % (0.0-3.0); HEMATOCRIT 33.7 % (36.0-47.0); HEMOGLOBIN 10.3 g/dl (12.0-15.5); LYMPH # 1.4 10^3/uL (1.5-5.0); LYMPH % 24.4 % (24.0-44.0); MEAN CORPUSCULAR HEMOGLOBIN 30.9 pg (27.0-33.0); MEAN CORPUSCULAR HGB CONC 30.6 g/dl (32.0-36.5); MEAN CORPUSCULAR VOLUME 101.2 fl (80.0-96.0); MONO # 0.6 10^3/uL (0.0-0.8); MONO % 10.5 % (2.0-8.0); NEUTROPHILS # 3.4 10^3/uL (1.5-8.5); NEUTROPHILS % 61.3 % (36.0-66.0); PLATELET COUNT, AUTOMATED 121 10^3/uL (150-450); RED BLOOD COUNT 3.33 10^6/uL (4.00-5.40); WHITE BLOOD COUNT 5.5 10^3/uL (4.0-10.0)
[2023-12-26 06:41] LABS: BLOOD UREA NITROGEN 22 MG/DL (9-23); CALCIUM LEVEL 7.9 MG/DL (8.3-10.6); CARBON DIOXIDE LEVEL 31 MMOL/L (20-31); CHLORIDE LEVEL 106 MMOL/L (98-107); CREATININE FOR GFR 0.82 MG/DL (0.55-1.30); GLOMERULAR FILTRATION RATE > 60.0 (>45); GLUCOSE, FASTING 104 MG/DL (74-106); MAGNESIUM LEVEL 2.2 MG/DL (1.8-2.4); POTASSIUM SERUM 4.1 MMOL/L (3.5-5.1); SODIUM LEVEL 141 MMOL/L (136-145)
[2023-12-26 12:00] VITALS: BP 114/54; TEMP 98.1; O2SAT 93
[2023-12-26 19:57] VITALS: BP 109/50; TEMP 97.5; O2SAT 93
[2023-12-27 03:53] VITALS: BP 104/78; TEMP 97; O2SAT 94
[2023-12-27 06:28] LABS: BASO % 0.3 % (0.0-1.0); EOS # 0.2 10^3/uL (0.0-0.5); EOS % 3.2 % (0.0-3.0); HEMATOCRIT 33.5 % (36.0-47.0); HEMOGLOBIN 10.2 g/dl (12.0-15.5); LYMPH # 1.5 10^3/uL (1.5-5.0); LYMPH % 25.2 % (24.0-44.0); MEAN CORPUSCULAR HEMOGLOBIN 29.7 pg (27.0-33.0); MEAN CORPUSCULAR HGB CONC 30.4 g/dl (32.0-36.5); MEAN CORPUSCULAR VOLUME 97.7 fl (80.0-96.0); MONO # 0.6 10^3/uL (0.0-0.8); MONO % 10.3 % (2.0-8.0); NEUTROPHILS # 3.7 10^3/uL (1.5-8.5); NEUTROPHILS % 60.8 % (36.0-66.0); PLATELET COUNT, AUTOMATED 119 10^3/uL (150-450); RED BLOOD COUNT 3.43 10^6/uL (4.00-5.40)
[2023-12-27 06:55] LABS: BLOOD UREA NITROGEN 19 MG/DL (9-23); CALCIUM LEVEL 8.2 MG/DL (8.3-10.6); CARBON DIOXIDE LEVEL 37 MMOL/L (20-31); CHLORIDE LEVEL 103 MMOL/L (98-107); CREATININE FOR GFR 0.83 MG/DL (0.55-1.30); GLOMERULAR FILTRATION RATE > 60.0 (>45); GLUCOSE, FASTING 94 MG/DL (74-106); MAGNESIUM LEVEL 2.2 MG/DL (1.8-2.4); POTASSIUM SERUM 4.1 MMOL/L (3.5-5.1); SODIUM LEVEL 143 MMOL/L (136-145)
[2023-12-27 12:00] VITALS: BP 126/54; TEMP 97.3; O2SAT 93
[2023-12-27] MEDS: KETOROLAC 30 MG/ML 1ML VIAL IV SCH (15:07)
[2023-12-27] MEDS: TORSEMIDE (DEMADEX) 50 MG PER 1/2 TAB PO SCH (17:41)
[2023-12-27] MEDS: GABAPENTIN 400MG CAP PO SCH (17:41)
[2023-12-27 19:48] VITALS: BP 107/51; TEMP 97.2; O2SAT 93
[2023-12-27] MEDS: METOPROLOL TART 25 MG TABLET PO SCH (20:19)
[2023-12-28 03:54] VITALS: BP 121/55; TEMP 96.8; O2SAT 94
[2023-12-28 06:36] LABS: BASO % 0.3 % (0.0-1.0); EOS # 0.2 10^3/uL (0.0-0.5); EOS % 3.3 % (0.0-3.0); HEMOGLOBIN 9.8 g/dl (12.0-15.5); LYMPH # 1.4 10^3/uL (1.5-5.0); MEAN CORPUSCULAR HEMOGLOBIN 29.8 pg (27.0-33.0); MEAN CORPUSCULAR HGB CONC 30.6 g/dl (32.0-36.5); MEAN CORPUSCULAR VOLUME 97.3 fl (80.0-96.0); MONO # 0.6 10^3/uL (0.0-0.8); MONO % 9.7 % (2.0-8.0); NEUTROPHILS # 3.5 10^3/uL (1.5-8.5); NEUTROPHILS % 61.5 % (36.0-66.0); PLATELET COUNT, AUTOMATED 118 10^3/uL (150-450); RED BLOOD COUNT 3.29 10^6/uL (4.00-5.40); WHITE BLOOD COUNT 5.8 10^3/uL (4.0-10.0)
[2023-12-28 06:48] LABS: CALCIUM LEVEL 7.9 MG/DL (8.3-10.6); CREATININE FOR GFR 0.99 MG/DL (0.55-1.30); GLOMERULAR FILTRATION RATE 59.2 (>45); POTASSIUM SERUM 4.2 MMOL/L (3.5-5.1)
[2023-12-28 09:43] VITALS: BP 130/62
[2023-12-28] MEDS ORDERED: TORS20TA2 PO (09:54)
== END 2023-12-28 12:01 | disposition home or self-care (01) ==
LOC: EDBD 20:24 → M ED 20:24 → M ED INP 20:25 → EEVIPCON 20:25 → M MSPAV 12-25 06:14
PROVIDERS: ADMIT Preventive Medicine Undersea and Hyperbaric Medicine; ATTEND Internal Medicine Nephrology
DX: I50.33 Acute on chronic diastolic (congestive) heart failure (principal); I87.323 Chronic venous hypertension (idiopathic) with inflammation of bilateral lower extremity; I89.0 Lymphedema, not elsewhere classified; M17.0 Bilateral primary osteoarthritis of knee; I48.91 Unspecified atrial fibrillation; E66.01 Morbid (severe) obesity due to excess calories; G47.33 Obstructive sleep apnea (adult) (pediatric); J96.11 Chronic respiratory failure with hypoxia; F41.9 Anxiety disorder, unspecified; I10 Essential (primary) hypertension; Z79.01 Long term (current) use of anticoagulants; Z79.899 Other long term (current) drug therapy; Z88.0 Allergy status to penicillin
CPT/HCPCS: 36415; 36600; 70450; 71045; 80048; 80053; 80076; 80162; 82550; 82553; 82803; 83605; 83735; 83880; 84145; 84484; 84550; 85025; 85027; 85610; 85730; 86140; 87040; 87486; 87581; 87633; 87798; 93005; 93041; 93306; 93970; 94640; 94760; 96374; 96375; 96376; 97116; 97161; 99285; G0378; J1885; J1940

== ENCOUNTER 2024-01-18 18:25 | Emergency (ER) | payer MEDICARE ==
[~2024-01-18 18:25] MED LIST changes: +ALBU2.5V10 INH; +GABA-1171 PO; +ROZE8TAB16 PO
[2024-01-18 20:00] LABS: BASO % 0.3 % (0.0-1.0); EOS # 0.1 10^3/uL (0.0-0.5); EOS % 1.5 % (0.0-3.0); HEMATOCRIT 35.1 % (36.0-47.0); HEMOGLOBIN 10.7 g/dl (12.0-15.5); LYMPH % 15.1 % (24.0-44.0); MEAN CORPUSCULAR HEMOGLOBIN 29.7 pg (27.0-33.0); MEAN CORPUSCULAR HGB CONC 30.5 g/dl (32.0-36.5); MEAN CORPUSCULAR VOLUME 97.5 fl (80.0-96.0); MONO # 0.5 10^3/uL (0.0-0.8); MONO % 7.3 % (2.0-8.0); NEUTROPHILS % 75.7 % (36.0-66.0); PLATELET COUNT, AUTOMATED 159 10^3/uL (150-450); WHITE BLOOD COUNT 6.7 10^3/uL (4.0-10.0)
[2024-01-18 20:29] LABS: CK-MB VALUE MASS < 1.0 NG/ML (<3.6)
[2024-01-18 20:31] LABS: ALBUMIN 2.7 G/DL (3.2-5.2); ALKALINE PHOSPHATASE 93 U/L (46-116); ALT/SGPT 29 U/L (7.0-40); AST/SGOT 47 U/L (<34); BILIRUBIN,DIRECT 0.2 MG/DL (<0.4); BILIRUBIN,TOTAL 0.4 MG/DL (0.3-1.2); BLOOD UREA NITROGEN 20 MG/DL (9-23); CALCIUM LEVEL 8.4 MG/DL (8.3-10.6); CARBON DIOXIDE LEVEL 35 MMOL/L (20-31); CHLORIDE LEVEL 103 MMOL/L (98-107); CREATININE FOR GFR 0.82 MG/DL (0.55-1.30); GLOMERULAR FILTRATION RATE > 60.0 (>45); GLUCOSE, FASTING 113 MG/DL (74-106); POTASSIUM SERUM 4.5 MMOL/L (3.5-5.1); SODIUM LEVEL 138 MMOL/L (136-145); TOTAL PROTEIN 5.5 G/DL (5.7-8.2)
[2024-01-18 20:33] LABS: CPK CREATINE PHOSPHOKINASE 56 U/L (34-145); MB/CK RELATIVE INDEX 1.78 (< OR =4)
[2024-01-18 21:19] LABS: CK-MB VALUE MASS < 1.0 NG/ML (<3.6)
[2024-01-18 21:23] LABS: CPK CREATINE PHOSPHOKINASE 56 U/L (34-145); MB/CK RELATIVE INDEX 1.78 (< OR =4)
[2024-01-18 22:30] VITALS: O2SAT 93
[2024-01-18 22:46] VITALS: BP 118/64; TEMP 97; O2SAT 98
== END 2024-01-18 22:49 | disposition home or self-care (01) ==
LOC: EDSEX 18:25 → M ED 18:25 → EDBD 18:25 → M ED 22:49
DX: R06.02 Shortness of breath (principal); I10 Essential (primary) hypertension; D64.9 Anemia, unspecified; G47.33 Obstructive sleep apnea (adult) (pediatric); M51.36 Other intervertebral disc degeneration, lumbar region; E66.9 Obesity, unspecified; Z87.891 Personal history of nicotine dependence; Z86.79 Personal history of other diseases of the circulatory system; Z88.0 Allergy status to penicillin; Z88.8 Allergy status to other drugs, medicaments and biological substances; Z79.52 Long term (current) use of systemic steroids; Z79.01 Long term (current) use of anticoagulants; Z79.811 Long term (current) use of aromatase inhibitors; Z79.899 Other long term (current) drug therapy

== ENCOUNTER 2024-03-06 23:07 | Inpatient (IN) | payer MEDICARE ==
[~2024-03-06] VITALS: Ht 160 cm; Wt 142.0 kg
[~2024-03-06 23:07] MED LIST changes: +BUSP5TA PO; +GABA-282 PO; +INCR1INH
[2024-03-06 23:39] LABS: VENOUS BASE EXCESS 9.1 (-2.0-2.0); VENOUS HCO3 36.2 MMOL/L (23.0-27.0); VENOUS O2 SATURATION 63.4 % (60.0-80.0); VENOUS PARTIAL PRESSURE CO2 61.9 mmHg (38.0-50.0); VENOUS PARTIAL PRESSURE O2 34.7 mmHg (30.0-50.0); VENOUS PH 7.385 UNITS (7.330-7.430); VENOUS STANDARD HCO3 32.1 MMOL/L; VENOUS TOTAL CO2 38.1 MMOL/L (24.0-28.0)
[2024-03-06 23:51] LABS: BASO % 0.3 % (0.0-1.0); EOS % 0.6 % (0.0-3.0); HEMATOCRIT 36.6 % (36.0-47.0); HEMOGLOBIN 11.6 g/dl (12.0-15.5); LYMPH # 0.9 10^3/uL (1.5-5.0); LYMPH % 12.8 % (24.0-44.0); MEAN CORPUSCULAR HEMOGLOBIN 29.7 pg (27.0-33.0); MEAN CORPUSCULAR HGB CONC 31.7 g/dl (32.0-36.5); MEAN CORPUSCULAR VOLUME 93.6 fl (80.0-96.0); MONO # 0.8 10^3/uL (0.0-0.8); MONO % 10.9 % (2.0-8.0); NEUTROPHILS # 5.2 10^3/uL (1.5-8.5); PLATELET COUNT, AUTOMATED 138 10^3/uL (150-450); RED BLOOD COUNT 3.91 10^6/uL (4.00-5.40)
[2024-03-07 00:02] LABS: INR 1.29; PARTIAL THROMBOPLASTIN TIME 33.4 SECONDS (24.8-34.2); PROTHROMBIN TIME 15.7 SECONDS (12.5-14.5)
[2024-03-07 00:09] LABS: CK-MB VALUE MASS < 1.0 NG/ML (<3.6); ETHYL ALCOHOL (ETHANOL) < 0.003 % (0.000-0.010); LIPASE 31 U/L (12-53)
[2024-03-07 00:11] LABS: ALBUMIN 3.1 G/DL (3.2-5.2); ALKALINE PHOSPHATASE 101 U/L (46-116); ALT/SGPT 27 U/L (7.0-40); AMYLASE 52 U/L (30-118); AST/SGOT 36 U/L (<34); BILIRUBIN,DIRECT 0.3 MG/DL (<0.4); BILIRUBIN,TOTAL 0.6 MG/DL (0.3-1.2); BLOOD UREA NITROGEN 29 MG/DL (9-23); CALCIUM LEVEL 8.4 MG/DL (8.3-10.6); CARBON DIOXIDE LEVEL 39 MMOL/L (20-31); CHLORIDE LEVEL 96 MMOL/L (98-107); CPK CREATINE PHOSPHOKINASE 86 U/L (34-145); CREATININE FOR GFR 1.31 MG/DL (0.55-1.30); GLOMERULAR FILTRATION RATE 42.9 (>45); GLUCOSE, FASTING 121 MG/DL (74-106); MB/CK RELATIVE INDEX 1.16 (< OR =4); POTASSIUM SERUM 3.3 MMOL/L (3.5-5.1); SODIUM LEVEL 141 MMOL/L (136-145); TOTAL PROTEIN 6.4 G/DL (5.7-8.2)
[2024-03-07] MEDS: NS 500 ML IV ONE ×2 (02:03→10:48)
[2024-03-07] MEDS: POTASSIUM CHLORIDE 10% LIQ 20MEQ/15ML UDC PO ONE (02:04)
[2024-03-07 03:25] LABS: APPEARANCE, URINE MANUAL HAZY (CLEAR); COLOR, URINE MANUAL YELLOW (YELLOW); GLUCOSE, URINE (UA) MANUAL NEGATIVE (NEGATIVE); KETONE, URINE MANUAL 2+ mg/dL (NEGATIVE); PROTEIN, URINE MANUAL TRACE mg/dL (NEGATIVE); UROBILINOGEN, URINE MANUAL NORMAL (NORMAL)
[2024-03-07 03:26] LABS: BILIRUBIN, URINE MANUAL 2+ (NEGATIVE); BLOOD URINE MANUAL TRACE (NEGATIVE); LEUKOCYTE ESTERASE, URINE MAN POSITIVE (NEGATIVE); NITRITE, URINE MANUAL NEGATIVE (NEGATIVE)
[2024-03-07 03:28] LABS: AMORPHOUS SEDIMENT, URINE SMALL AMOUNT (NEGATIVE); BACTERIA, URINE SMALL AMOUNT; HYALINE CAST, URINE NONE SEEN /lpf (0-1); RBC, URINE 0-1 /hpf (0-3); SQUAMOUS EPITHELIAL CELL URINE MOD AMOUNT /hpf (SMALL AMT)
[2024-03-07 03:33] LABS: MEAN CORPUSCULAR HEMOGLOBIN 29.6 pg (27.0-33.0); MEAN CORPUSCULAR HGB CONC 31.4 g/dl (32.0-36.5); MEAN CORPUSCULAR VOLUME 94.1 fl (80.0-96.0); PLATELET COUNT, AUTOMATED 138 10^3/uL (150-450); RED BLOOD COUNT 3.72 10^6/uL (4.00-5.40); WHITE BLOOD COUNT 9.7 10^3/uL (4.0-10.0)
[2024-03-07] MEDS: MAGNESIUM OXIDE 400MG TAB (MAG-OX) PO ONE (05:30)
[2024-03-07] MEDS: APIXABAN 5 MG TAB (ELIQUIS) PO ONE (05:31)
[2024-03-07] MEDS: LORazepam 1 MG TAB PO STA (05:31)
[2024-03-07 05:37] LABS: AMPHETAMINES LEVEL URINE NEGATIVE (NEGATIVE); BARBITURATES URINE NEGATIVE (NEGATIVE); BENZODIAZEPINES URINE NEGATIVE (NEGATIVE); CANNABINOIDS URINE NEGATIVE (NEGATIVE); COCAINE METABOLITE URINE NEGATIVE (NEGATIVE); METHADONE URINE NEGATIVE (NEGATIVE); PHENCYCLIDINE URINE NEGATIVE (NEGATIVE)
[2024-03-07] MEDS: ANEXSIA, NORCO 7.5MG/325MG TABLET(HYDROCODONE/APAP) PO ONE (05:37)
[2024-03-07] MEDS: BACLOFEN 10 MG TAB PO ONE (05:37)
[2024-03-07 05:41] LABS: OPIATES URINE POSITIVE (NEGATIVE)
[2024-03-07] MEDS: LevoFLOXacin IV 750 MG in IV 1 EA IV ONE (06:29)
[2024-03-07] MEDS ORDERED: INCR1INH INH (08:59)
[2024-03-07] MEDS ORDERED: RISP0.253 PO (08:59)
[2024-03-07] MEDS ORDERED: BUPR-71 PO (08:59)
[2024-03-07] MEDS ORDERED: HOME MED LIST COMPLETE! XX SCH (09:00)
[2024-03-07] MEDS ORDERED: hydrOXYzine 50 MG TAB PO PRN (10:55)
[2024-03-07] MEDS ORDERED: PILL CUTTER 1 EACH XX PRN (11:20)
[2024-03-07 11:21] LABS: BLOOD UREA NITROGEN 27 MG/DL (9-23); CALCIUM LEVEL 7.9 MG/DL (8.3-10.6); CARBON DIOXIDE LEVEL 37 MMOL/L (20-31); CHLORIDE LEVEL 97 MMOL/L (98-107); CREATININE FOR GFR 0.93 MG/DL (0.55-1.30); GLOMERULAR FILTRATION RATE > 60.0 (>45); GLUCOSE, FASTING 108 MG/DL (74-106); POTASSIUM SERUM 3.4 MMOL/L (3.5-5.1); SODIUM LEVEL 139 MMOL/L (136-145)
[2024-03-07 11:23] LABS: FREE T4 1.12 NG/DL (0.89-1.76); THYROID STIMULATING HORMONE 1.399 uIU/ML (0.55-4.78)
[2024-03-07 11:24] LABS: VITAMIN B12 LEVEL 498 PG/ML (211-911)
[2024-03-07] MEDS: BACLOFEN 10 MG TAB PO SCH (13:00)
[2024-03-07] MEDS: risperiDONE 0.5 MG TAB PO SCH (14:06)
[2024-03-07] MEDS: **hydrALAZINE HCL** 25 MG TAB PO PRN (14:07)
[2024-03-07] MEDS: busPIRone 5 MG TAB PO SCH (14:07)
[2024-03-07] MEDS: POTASSIUM CHLORIDE 10MEQ SR TABLET PO ONE (14:08)
[2024-03-07] MEDS: NORCO, ANEXSIA 5/325MG TABLET (HYDROcodone/ACETAMINOPHEN) PO PRN (14:10)
[2024-03-07] MEDS: MAGNESIUM OXIDE 400MG TAB (MAG-OX) PO SCH (14:10)
[2024-03-07] MEDS: APIXABAN 5 MG TAB (ELIQUIS) PO SCH (14:11)
[2024-03-07] MEDS: METOPROLOL TART 25 MG TABLET PO SCH (14:11)
[2024-03-07] MEDS: DIGOXIN 0.125 MG TAB PO SCH (14:11)
[2024-03-07 16:47] VITALS: BP 114/86; TEMP 97.5; O2SAT 94
[2024-03-07] MEDS: NYSTATIN 100,000 UNITS/GM TOPICAL PWD 15GM TOP SCH (20:29)
[2024-03-07 20:41] VITALS: BP 142/78; TEMP 97.5; O2SAT 96
[2024-03-07] MEDS ORDERED: LORazepam 1 MG TAB PO PRN (21:35)
[2024-03-07] MEDS: LORazepam 0.5 MG TAB PO PRN (21:43)
[2024-03-07] MEDS ORDERED: NORCO, ANEXSIA 5/325MG TABLET (HYDROcodone/ACETAMINOPHEN) PO PRN (23:00)
[2024-03-07] MEDS ORDERED: LIDOCAINE 5% (LIDODERM) PATCH TD PRN (23:00)
[2024-03-07] MEDS ORDERED: ACETAMINOPHEN TAB 650MG DOSE (2X325MG) PO PRN (23:00)
[2024-03-07] MEDS: ANEXSIA, NORCO 7.5MG/325MG TABLET(HYDROCODONE/APAP) PO PRN (23:12)
[2024-03-08] MEDS: IPRATROPIUM 0.5MG/ALBUTEROL 2.5MG INH SOL UD 3ML (DUONEB) NEB PRN (02:13)
[2024-03-08 04:40] VITALS: BP 144/73; TEMP 97.5; O2SAT 95
[2024-03-08 07:05] LABS: BASO % 0.3 % (0.0-1.0); EOS # 0.2 10^3/uL (0.0-0.5); EOS % 2.7 % (0.0-3.0); HEMATOCRIT 35.4 % (36.0-47.0); LYMPH # 1.2 10^3/uL (1.5-5.0); LYMPH % 16.1 % (24.0-44.0); MEAN CORPUSCULAR HEMOGLOBIN 29.5 pg (27.0-33.0); MEAN CORPUSCULAR HGB CONC 31.1 g/dl (32.0-36.5); MEAN CORPUSCULAR VOLUME 94.9 fl (80.0-96.0); MONO # 0.7 10^3/uL (0.0-0.8); MONO % 9.9 % (2.0-8.0); NEUTROPHILS # 5.3 10^3/uL (1.5-8.5); NEUTROPHILS % 70.6 % (36.0-66.0); PLATELET COUNT, AUTOMATED 132 10^3/uL (150-450); RED BLOOD COUNT 3.73 10^6/uL (4.00-5.40); WHITE BLOOD COUNT 7.4 10^3/uL (4.0-10.0)
[2024-03-08] MEDS ORDERED: NORCO, ANEXSIA 5/325MG TABLET (HYDROcodone/ACETAMINOPHEN) PO PRN (07:05)
[2024-03-08 07:27] LABS: BLOOD UREA NITROGEN 20 MG/DL (9-23); CALCIUM LEVEL 8.4 MG/DL (8.3-10.6); CARBON DIOXIDE LEVEL 35 MMOL/L (20-31); CHLORIDE LEVEL 98 MMOL/L (98-107); CREATININE FOR GFR 0.89 MG/DL (0.55-1.30); GLOMERULAR FILTRATION RATE > 60.0 (>45); GLUCOSE, FASTING 123 MG/DL (74-106); POTASSIUM SERUM 3.2 MMOL/L (3.5-5.1); SODIUM LEVEL 139 MMOL/L (136-145)
[2024-03-08] MEDS: TIOTROPIUM INHALER/CAPSULE (SPIRIVA) INH SCH (08:27)
[2024-03-08] MEDS: buPROPion **SR TABLET** (ZYBAN) 150MG PO SCH (10:12)
[2024-03-08 10:14] VITALS: BP 135/88
[2024-03-08] MEDS: POTASSIUM CHLORIDE 10MEQ SR TABLET PO ONE (10:14)
[2024-03-08] MEDS ORDERED: TORS10TA3 PO (10:30)
[2024-03-08] MEDS ORDERED: LIDO1PAD TOP (10:30)
[2024-03-08] MEDS ORDERED: LORA1TAB23 PO (10:30)
[2024-03-08] MEDS ORDERED: HYDR50TA70 PO (10:30)
[2024-03-08] MEDS ORDERED: ZOLP10TA2 PO (10:30)
[2024-03-08] MEDS ORDERED: BACL1TAB9 PO (10:34)
== END 2024-03-08 12:00 | disposition home or self-care (01) | DRG 92 ==
LOC: M ED 23:07 → M ED INP 03-07 09:36 → M MS5PR 03-07 16:25
PROVIDERS: ADMIT Internal Medicine; ATTEND Internal Medicine
DX: G92.8 Other toxic encephalopathy (principal); I50.32 Chronic diastolic (congestive) heart failure; J96.10 Chronic respiratory failure, unspecified whether with hypoxia or hypercapnia; N17.9 Acute kidney failure, unspecified; E66.01 Morbid (severe) obesity due to excess calories; J44.9 Chronic obstructive pulmonary disease, unspecified; I48.91 Unspecified atrial fibrillation; F41.9 Anxiety disorder, unspecified; G47.33 Obstructive sleep apnea (adult) (pediatric); G89.29 Other chronic pain; M54.9 Dorsalgia, unspecified; M19.90 Unspecified osteoarthritis, unspecified site; S00.93XA Contusion of unspecified part of head, initial encounter; S20.229A Contusion of unspecified back wall of thorax, initial encounter; V48.4XXA Person boarding or alighting a car injured in noncollision transport accident, initial encounter; Z90.49 Acquired absence of other specified parts of digestive tract; M47.816 Spondylosis without myelopathy or radiculopathy, lumbar region; Z98.84 Bariatric surgery status; M51.36 Other intervertebral disc degeneration, lumbar region; F32.A Depression, unspecified; I11.0 Hypertensive heart disease with heart failure; E04.2 Nontoxic multinodular goiter; G47.00 Insomnia, unspecified; Z79.82 Long term (current) use of aspirin; Z79.899 Other long term (current) drug therapy; Z88.0 Allergy status to penicillin; Z88.8 Allergy status to other drugs, medicaments and biological substances; Z99.81 Dependence on supplemental oxygen